=== PATIENT | male | born 1950 | race Caucasian/White ===

== ENCOUNTER 2021-06-26 05:55 | Day surgery (SDC) | payer MEDICARE, OTHER ==
[~2021-06-26] VITALS: Ht 177.8 cm; Wt 75.0 kg
[~2021-06-26 05:55] MED LIST: ATOR20TA PO; CALC500T30 PO; CETI10TA16 PO; ESOM40CA PO; LAMO150T3 PO; MAGN400C PO; PARO40TA61 PO
[2021-06-26] MEDS ORDERED: ceFAZolin SODIUM IV Push 1 GM VIAL. IVP PRN (06:00)
[2021-06-26] MEDS ORDERED: fentaNYL PF VIAL 100 MCG/2 ML VIAL IVP PRN ×2 (06:00)
[2021-06-26] MEDS ORDERED: PROCHLORPERAZINE 10 MG/2 ML VIAL. IVP PRN (06:00)
[2021-06-26] MEDS ORDERED: IV RINGERS,LACTATED 1000ML 1,000 ML IV SCH (06:00)
[2021-06-26] MEDS ORDERED: HYDROmorphone 2 MG/ML INJ. IVP PRN (06:00)
[2021-06-26] MEDS ORDERED: ACETAMINOPHEN 500 MG TABLET PO ONE (06:00)
[2021-06-26] MEDS ORDERED: MORPHINE SULFATE 2 MG/ML INJ. IVP PRN (06:00)
[2021-06-26] MEDS ORDERED: PROPOFOL 10 MG/ML (20ML) VIAL. IV ONE (06:45)
[2021-06-26] MEDS ORDERED: DEXAMETHASONE SOD PHOS 4 MG/ML VIAL ONE (06:46)
[2021-06-26] MEDS ORDERED: FAMOTIDINE 20 MG/2 ML VIAL ONE (06:46)
[2021-06-26] MEDS ORDERED: LIDOCAINE 2% PF 5 ML VIAL. ONE (06:46)
[2021-06-26] MEDS ORDERED: fentaNYL PF VIAL 100 MCG/2 ML VIAL ONE (06:46)
[2021-06-26] MEDS ORDERED: ONDANSETRON PF 4 MG/2 ML VIAL. ONE (06:46)
[2021-06-26] MEDS ORDERED: GLYCOPYRROLATE 1 MG/5 ML VIAL. ONE (06:47)
[2021-06-26] MEDS ORDERED: NEOSTIGMINE METHYLSULFATE 5 MG/5 ML SYRINGE. ONE (06:47)
[2021-06-26] MEDS ORDERED: ROCURONIUM 50 MG/5 ML VIAL. ONE (06:50)
[2021-06-26] MEDS ORDERED: BUPIVACAINE-EPI 0.25% 30 ML VIAL KIT. ONE (07:04)
[2021-06-26] MEDS ORDERED: MINERAL OIL for SURGERY 10 ML VIAL. MC ONE ×2 (07:04→08:17)
--- NOTE | 2021-06-26 07:34 | PDOC1 ---
History and Physical Date of Admission Date of Admission DATE: 06/26/21 TIME: 07:30 Identification/Chief Complaint Chief Complaint Painful right groin bulge Source Source: Patient History of Present Illness History of Present Illness 70-year-old male with complaints of a bulge in his right groin has been painful its been getting worse over the last 2 weeks Past Medical History Cardiovascular: HTN, Hyperlipidemia Pulmonary: No pertinent hx GI: GERD, Other (Colon polyps) Heme/Onc: No pertinent hx Hepatobiliary: No pertinent hx Psych: Anxiety Rheumatologic: No pertinent hx Infectious disease: No pertinent hx ENT: No pertinent hx Renal/: No pertinent hx Endocrine: No pertinent hx Dermatology: No pertinent hx Past Surgical History Past Surgical History: Cataract Removal, Tonsillectomy Family History Family History: No Significant Social History Smoke: No ALCOHOL: none Drugs: None Current Medications Current Medications Current Medications Fentanyl Citrate (Fentanyl 2ml Vial) 25 mcg PRN Q5MIN PRN IVP MILD PAIN 1-3; Start 06/26/21 at 06:00; Stop 06/27/21 at 05:59 Fentanyl Citrate (Fentanyl 2ml Vial) 50 mcg PRN Q5MIN PRN IVP MODERATE PAIN 4- 6; Start 06/26/21 at 06:00; Stop 06/27/21 at 05:59 Morphine Sulfate (Morphine Sulfate) 1 mg PRN Q10MIN PRN IVP SEVERE PAIN 7-10; Start 06/26/21 at 06:00; Stop 06/27/21 at 05:59 Ringer's Solution 1,000 ml @ 30 mls/hr Q24H IV Last administered on 06/26/21at 06:21; Start 06/26/21 at 06:00; Stop 06/26/21 at 17:59 Hydromorphone HCl (Dilaudid) 0.5 mg PRN Q10MIN PRN IVP SEVERE PAIN 7-10, 2nd CHOICE; Start 06/26/21 at 06:00; Stop 06/27/21 at 05:59 Prochlorperazine Edisylate (Compazine) 5 mg PACU PRN PRN IVP NAUSEA, MRX1; Start 06/26/21 at 06:00; Stop 06/27/21 at 05:59 Cefazolin Sodium (Ancef) 1 gm 1X PREOP PRN IVP PRIOR TO PROCEDURE; Start 06/26/21 at 06:00; Stop 06/26/21 at 21:00 Acetaminophen (Tylenol) 1,000 mg 1X ONCE PO Last administered on 06/26/21at 06:21; Start 06/26/21 at 06:00; Stop 06/26/21 at 06:01; Status DC Propofol (Diprivan) 200 mg STK-MED ONCE IV ; Start 06/26/21 at 06:45; Stop 06/26/21 at 06:45; Status DC Famotidine (Pepcid Vial) 20 mg STK-MED ONCE .ROUTE ; Start 06/26/21 at 06:46; Stop 06/26/21 at 06:46; Status DC Ondansetron HCl (Zofran) 4 mg STK-MED ONCE .ROUTE ; Start 06/26/21 at 06:46; Stop 06/26/21 at 06:46; Status DC Dexamethasone Sodium Phosphate (Decadron) 4 mg STK-MED ONCE .ROUTE ; Start 06/26/21 at 06:46; Stop 06/26/21 at 06:46; Status DC Lidocaine HCl (Lidocaine Pf 2% Vial) 5 ml STK-MED ONCE .ROUTE ; Start 06/26/21 at 06:46; Stop 06/26/21 at 06:46; Status DC Fentanyl Citrate (Fentanyl 2ml Vial) 100 mcg STK-MED ONCE .ROUTE ; Start 06/26/21 at 06:46; Stop 06/26/21 at 06:47; Status DC Neostigmine Clements (Neostigmine Methylsulfate) 5 mg STK-MED ONCE .ROUTE ; Start 06/26/21 at 06:47; Stop 06/26/21 at 06:47; Status DC Glycopyrrolate (Robinul) 1 mg STK-MED ONCE .ROUTE ; Start 06/26/21 at 06:47; Stop 06/26/21 at 06:47; Status DC Rocuronium Clements (Zemuron) 50 mg STK-MED ONCE .ROUTE ; Start 06/26/21 at 06:50; Stop 06/26/21 at 06:51; Status DC Bupivacaine HCl/ Epinephrine Bitart (Sensorcain-Epi 0.25% Kit) 30 ml STK-MED ONCE .ROUTE ; Start 06/26/21 at 07:04; Stop 06/26/21 at 07:04; Status DC Mineral Oil (Muri-Lube) 10 ml STK-MED ONCE MC ; Start 06/26/21 at 07:04; Stop 06/26/21 at 07:05; Status DC Active Scripts Active Reported Lamictal (Lamotrigine) 150 Mg Tablet 150 Mg PO DAILY Cetirizine Hcl 10 Mg Tablet 10 Mg PO PRN PRN Lipitor (Atorvastatin Calcium) 20 Mg Tablet 20 Mg PO HS Calcium (Calcium Carbonate) 500 Mg Tablet 500 Mg PO BID Magnesium (Magnesium Oxide) 400 Mg Capsule 400 Mg PO HS Paxil (Paroxetine Hcl) 40 Mg Tablet 40 Mg PO DAILY Nexium Capsule (Esomeprazole Magnesium) 40 Mg Capsule.dr 40 Mg PO DAILYAC Allergies Allergies: Coded Allergies: ciprofloxacin (Verified Allergy, Severe, Anaphylaxis, 06/25/21) bee venom protein (honey bee) (Verified Allergy, Intermediate, EXTREME SWELLING, 06/25/21) piroxicam (Verified Allergy, Intermediate, Hives, 06/25/21) ROS Genitourinary: YES Pain (Right groin) Physical Exam General: Alert, Oriented X3, Cooperative, No acute distress HEENT: Atraumatic, EOMI Lungs: Clear to auscultation, Normal air movement Heart: RRR, no murmurs Abdomen: Normal bowel sounds, Soft, No tenderness Male Genitals Exam: other (Right groin tenderness with hernia) Rectal Exam: deferred Extremities: No edema Skin: No significant lesion Neuro: Normal speech Psych/Mental Status: Mental status NL Vitals Vitals Vital Signs Date Time Temp Pulse Resp B/P (MAP) Pulse Ox O2 Delivery O2 Flow Rate FiO2 06/26/21 06:18 97.3 76 20 166/102 98 Room Air 97.3 VTE Prophylaxis Ordered VTE Prophylaxis Devices: Yes VTE Pharmacological Prophylaxi: Contraindicated Assessment/Plan Assessment/Plan Right inguinal hernia plan robotic assisted laparoscopic repair Justifications for Admission Other Justification ANDRÉS ROCK MD Jun 26, 2021 07:34
[2021-06-26] MEDS ORDERED: PHENYLEPHRINE in 0.9% NACL PF 1 MG/10 ML SYRINGE. IV ONE (08:06)
[2021-06-26] MEDS ORDERED: BUPIVACAINE-EPI 0.25% 30 ML VIAL KIT. INJ ONE (08:17)
--- NOTE | 2021-06-26 09:07 | PDOC4 ---
Operative Note Operative Note Date: June 262020 at 9:04 AM Preoperative diagnosis: Right inguinal hernia Postoperative diagnosis: Same Procedure: Robotic assisted laparoscopic right inguinal hernia repair with mesh Surgeon: Pablo Specimen: None Dictation: Patient is a 70-year-old male with a right inguinal hernia. Procedure of robotic assisted laparoscopic right inguinal hernia repair with mesh was explained to the patient detail was benefits were also discussed incl uding bleeding infection injury to intra-abdominal contents possible necessitating further open operations alternatives this procedure also discussed with the patient who seemed to understand and gave a verbal written consent has procedure performed. Patient was taken to the operating room placed in the supine position general anesthesia was initiated once patient was sleeping int ubated he was placed in lithotomy positioning and his abdomen was prepped and draped usual sterile fashion using ChloraPrep. An area just above the umbilicus was injected with quarter percent Marcaine with epinephrine incision was made 11 blade scalpel and a varies needle was placed within the abdomen creating pneumoperitoneum once this was complete 8 mm ventral port was placed in the beach camera was placed within the abdomen which was inspected was noted there was a direct inguinal hernia on the right side. 8 mm da Pineda port was placed in the right midabdomen and an 8 mm da Pineda ports placed in left midabdomen all under direct visualization. The da Pineda robot is brought and docked all port site surgeon went to the robotic console using a grasper and Endo Sergio scissors the peritoneum on the right side was incised and a flap propagated inferiorly reducing the hernia sac and contents. A medium Bard 3D max mesh for the right side was placed over the hernia defect using 3-0 Vicryl the Mansoor's ligament was attached to the mesh as well as a single interrupted suture at the superior border of the mesh. The peritoneum was then closed over the mesh with a running 2 OV lock absorbable suture sutures removed from the abdomen. The da Pineda docked from the port sites and the port sites were removed all port sites were closed with 4 subcuticular Monocryl Mastisol Steri-Strips and island dressings were applied. Patient was awakened extubated in the operating room taken to recovery in stable condition all sponge instrument needle counts listed as correct estimated blood loss 5 mL ANDRÉS ROCK MD Jun 26, 2021 09:07
[2021-06-26] MEDS ORDERED: OXYC-325 PO (09:10)
--- NOTE | 2021-06-26 09:11 | DISCH ---
DISCHARGE INSTRUCTIONS Condition on Discharge Condition on Discharge: Stable Activity After Discharge Activity Instructions for Disc: Avoid exertion Other activity instructions: No lifting more than 20 pounds for 2-week Diet after Discharge Diet after Discharge: Regular Wound Incision Care Other wound/incision instructi: May shower in 24 hours Contacting the after DC Call your doctor for: If your condition worsens Follow-Up Follow up with: Dr. Rock in 2 weeks ANDRÉS ROCK MD Jun 26, 2021 09:11
[2021-06-26] MEDS ORDERED: oxyCODONE/APAP 5/325 1 TAB TABLET PO ONE (09:30)
[2021-06-26 09:59] VITALS: BP 145/84
[2021-06-26] MEDS ORDERED: SEVOFLURANE 31 TO 60 MINUTES. IH ONE (11:30)
== END 2021-06-26 10:25 | disposition home or self-care (01) ==
LOC: SURG 05:55
PROVIDERS: ATTEND Surgery
DX: K40.90 Unilateral inguinal hernia, without obstruction or gangrene, not specified as recurrent (principal); I10 Essential (primary) hypertension; K21.9 Gastro-esophageal reflux disease without esophagitis; E78.00 Pure hypercholesterolemia, unspecified; M19.90 Unspecified osteoarthritis, unspecified site; F41.9 Anxiety disorder, unspecified; F32.9 Major depressive disorder, single episode, unspecified; Z79.899 Other long term (current) drug therapy; Z98.890 Other specified postprocedural states; Z72.89 Other problems related to lifestyle; Z86.010 Personal history of colon polyps; Z87.891 Personal history of nicotine dependence; Z88.1 Allergy status to other antibiotic agents; Z88.8 Allergy status to other drugs, medicaments and biological substances
CPT/HCPCS: 49650; A4209; A4364; A4930; A6219; C1781; J0690; J1100; J2370; J2405; J2704; J2710; J3010; J3490; A4452; A4657